=== PATIENT | male | born 1950 | race Caucasian/White ===

== ENCOUNTER 2024-03-08 11:11 | Outpatient (CLI) | payer MEDICARE, BC ==
[2024-03-08 13:55] LABS: #Basophils 0.09 10x3/uL (0.0-0.2); %Basophils 1.5 % (0.0-1.0); %Eosinophils 2.9 % (0.0-10.0); %Lymphocytes 42.9 % (21.0-51.0); %Monocytes 7.7 % (0.0-10.0); %Neutrophils 44.7 % (42.0-75.0); Hematocrit 40.1 % (42.0-52.0); Hemoglobin 13.2 g/dL (14.0-18.0); Mean Corpuscular HGB CONC 32.9 g/dL (32.0-36.0); Mean Corpuscular Hemoglobin 28.8 pg (27.0-31.0); Mean Corpuscular Volume 87.6 fL (78.0-98.0); Mean Platelet Volume 9.6 fL (7.4-10.4); Platelet Count 285 10x3/uL (130-400); RBC Distribution Width 14.1 % (11.5-14.5); Red Blood Cell (RBC) Count 4.58 mill/uL (4.70-6.10)
[2024-03-08 14:07] LABS: Anion Gap 13 mmol/L (10-20); BUN (Urea Nitrogen) 37 mg/dL (8.4-25.7); Calc. Creatinine Clearance 0 mL/min (70-130); Calcium 9.8 mg/dL (7.8-10.44); Carbon Dioxide 25 mmol/L (23-31); Chloride 104 mmol/L (98-107); Estimated GFR 38; Glucose 163 mg/dL (83-110); Potassium 4.2 mmol/L (3.5-5.1); Sodium 138 mmol/L (136-145)
[2024-03-08 14:11] LABS: INR-International Normal Ratio 1.1; Prothrombin Time 14.4 sec (12.0-14.7)
== END 2024-03-08 11:12 | disposition home or self-care (01) ==
LOC: LABBT 11:11
PROVIDERS: ATTEND Orthopaedic Surgery
DX: Z01.818 Encounter for other preprocedural examination (principal); M19.012 Primary osteoarthritis, left shoulder
CPT/HCPCS: 80048; 85025; 85610; 87081

== ENCOUNTER 2024-03-15 07:05 | Day surgery (SDC) | payer MEDICARE, BC ==
[2024-03-08 11:24] VITALS: BMI 30.4
[2024-03-15] MEDS ORDERED: Vancomycin (BATCH) 1.5 GM/300 ML BAG ONE (07:55)
[2024-03-15] MEDS ORDERED: Tranexamic Acid 1,000 MG/10 ML VIAL ONE (07:55)
[2024-03-15] MEDS ORDERED: Sodium Chloride 0.9% 100 ML ONE ×3 (07:55→16:18)
[2024-03-15] MEDS ORDERED: fentaNYL 50 mcg/mL 1 mL Vial ONE ×2 (08:12→13:49)
[2024-03-15] MEDS ORDERED: Midazolam HCl 2 mg/2 ml Vial ONE (08:13)
[2024-03-15] MEDS ORDERED: Ropivacaine 0.5% HCl/PF (150 MG/30 ML VIAL) ONE (08:13)
[2024-03-15] MEDS ORDERED: Ropivacaine 0.2% HCl/PF 20 ML ONE (08:13)
[2024-03-15] MEDS ORDERED: Ropivacaine 0.2% 550 ML 550 ML NERVE BLCK SCH (09:15)
[2024-03-15] MEDS ORDERED: Ondansetron PF 4 MG/2 ML Vial IVP PRN (09:15)
[2024-03-15] MEDS ORDERED: Promethazine HCl 25 MG/ML VIAL IM PRN ×2 (09:15→10:53)
[2024-03-15] MEDS ORDERED: fentaNYL 50 mcg/mL 1 mL Vial SLOW IVP PRN (09:15)
[2024-03-15] MEDS ORDERED: HYDROcodone/Acetaminophen 10/325 mg Tablet PO PRN ×2 (09:15)
[2024-03-15] MEDS ORDERED: traMADol HCl 50 MG TAB PO PRN ×2 (09:15)
[2024-03-15] MEDS ORDERED: CEFAZOLIN 2 GM VIAL ONE ×2 (09:45→16:18)
[2024-03-15] MEDS ORDERED: PROPOFOL 20 ML ONE (10:00)
[2024-03-15] MEDS ORDERED: Lidocaine 2% PF 5 ML VIAL ONE (10:00)
[2024-03-15] MEDS ORDERED: PHENYLEPHRINE-NS 100 MCG/ML 10 ML SYRINGE ONE (10:06)
[2024-03-15] MEDS ORDERED: Ondansetron PF 4 MG/2 ML Vial ONE (10:13)
[2024-03-15] MEDS ORDERED: Phenylephrine 10 MG/ML VIAL ONE (10:13)
[2024-03-15] MEDS ORDERED: NOREPINEPHRINE 8 MG/250 ML-D5W 250 ML ONE (10:23)
[2024-03-15] MEDS ORDERED: Ondansetron HCl/PF 4 MG/2 ML Vial IVP PRN (10:53)
[2024-03-15] MEDS ORDERED: HYDROmorphone 2 MG/ML VIAL SLOW IVP PRN (10:53)
[2024-03-15] MEDS ORDERED: PACU-Morphine 4MG/ML VIAL SLOW IVP PRN (10:53)
== END 2024-03-15 17:50 | disposition home or self-care (01) ==
LOC: SDC 07:05
PROVIDERS: ATTEND Orthopaedic Surgery
PROC: 0RRK0JZ Replacement of Left Shoulder Joint with Synthetic Substitute, Open Approach (ICD-10-PCS; principal; 2024-03-15)
PROC: 3E0T3BZ Introduction of Anesthetic Agent into Peripheral Nerves and Plexi, Percutaneous Approach (ICD-10-PCS; 2024-03-15)
DX: M19.012 Primary osteoarthritis, left shoulder (principal); M75.22 Bicipital tendinitis, left shoulder; I12.9 Hypertensive chronic kidney disease with stage 1 through stage 4 chronic kidney disease, or unspecified chronic kidney disease; N18.30 Chronic kidney disease, stage 3 unspecified; E78.5 Hyperlipidemia, unspecified; E11.22 Type 2 diabetes mellitus with diabetic chronic kidney disease; K21.9 Gastro-esophageal reflux disease without esophagitis; H40.9 Unspecified glaucoma; I25.2 Old myocardial infarction; I73.9 Peripheral vascular disease, unspecified; Z90.89 Acquired absence of other organs
CPT/HCPCS: 23430; 23472; 64416; 82962; 93005; A4306; C1713; C1776; J2250; J2371; J2405; J2704; J2795 ×3; J3010; J3370; 36416; 93010